=== PATIENT | male | born 1935 ===

== ENCOUNTER 2016-05-10 19:13 | Inpatient (IN) | payer MEDICARE ==
--- NOTE | 2016-05-10 19:15 | ED Physician Chart ---
Chief Complaint/HPI - Patient Information Date Seen:: 05/10/16 Time Seen:: 19:15 Chief Complaint:: agitation History of Present Illness:: 80-year-old male brought in by EMS with acute, worsening, constant, severe, agitation started this morning. Has associated aggressive behavior towards staff and other patients. History limited as patient has underlying dementia and/or psychosis and does not provide any history History provided by EMS and EMS run sheet Historian:: EMS Review:: Nurse's Note Reviewed, EMS run form Reviewed, Transfer documents Reviewed Review of Systems - Review of Systems Other: Complete system review otherwise unremarkable except as noted in HPI. Past Medical History - Past Medical History Past Medical History: HTN, Asthma/COPD, Thyroid disorder, Dementia Family History: None Social History: Non Smoker, No Alcohol, No Drug Use, Care Facility Surgical History: None Psychiatricy History: Schizophrenia Medication: Reviewed Family Medical History - Family Member Mother History Unknown: Yes Physical Exam - Physical Examination Other:: INITIAL VITAL SIGNS: Reviewed by me GENERAL: Patient is lying on gurney, alert but uncooperative and demented. HEAD: Head is normocephalic. No evidence of trauma. No scalp or facial swelling EYES: No scleral icterus bilaterally ENT: Oropharynx is clear of exudate and erythema NECK: Supple. No meningismus. No masses. No evidence of trauma. No cervical spine bony step-offs or crepitus to palpation RESPIRATORY: No tachypnea. Clear to auscultation bilaterally. CV: Regular rate and rhythm. No murmurs, rubs, or gallops ABDOMEN: Soft, non-distended. No masses BACK: No ecchymoses. No evidence of trauma EXTREMITIES: Normal to inspection and palpation. No deformity SKIN: Warm and dry. No obvious rash. No jaundice NEUROLOGIC: Face is symmetric. Withdraws to pain in all extremities Labs/Radiology/EKG Results - Lab Results Results: Lab Results 05/10/16 05/10/16 05/10/16 Range/Units 19:26 19:26 19:26 WBC 13.3 H (4.8-10.8) Th/cmm RBC 5.03 (3.80-5.80) Mil/cmm Hgb 15.3 (12.6-17.4) gm/dL Hct 44.4 (39.0-49.0) % MCV 88.3 (80-99) fl MCH 30.3 (27.0-31.0) pg MCHC Differential 34.4 (28.0-36.0) pg RDW 13.6 (11.5-20.0) % Plt Count 90 L (150-400) Th/cmm MPV 9.6 fl Neutrophils % 88.2 H (40.0-80.0) % Lymphocytes % 7.1 L (20.0-50.0) % Monocytes % 3.8 (2.0-10.0) % Eosinophils % 0.8 (0.0-5.0) % Basophils % 0.1 (0.0-2.0) % Sodium 141 (136-145) mEq/L Potassium 3.8 (3.5-5.1) mEq/L Chloride 113 H (98-107) mEq/L Carbon Dioxide 24.1 (21.0-31.0) mEq/L Anion Gap 7.7 (7.0-16.0) BUN 43 H (7-25) mg/dL Creatinine 1.8 H (0.7-1.3) mg/dL Est GFR ( Amer) TNP Est GFR (Non-Af Amer) TNP BUN/Creatinine Ratio 23.9 Glucose 113 H (70-105) mg/dL Whole Bld Lactic Acid (0.60-2.00) mmol/L Calcium 8.3 L (8.6-10.3) mg/dL Total Bilirubin 1.0 (0.3-1.0) mg/dL AST 23 (13-39) U/L ALT 29 (7-52) U/L Alkaline Phosphatase 178 H (34-104) U/L Total Protein 6.0 (6.0-8.3) gm/dL Albumin 2.9 L (4.2-5.5) gm/dL Globulin 3.1 gm/dL Albumin/Globulin Ratio 0.9 L (1.0-1.8) Triglycerides 120 (<150) mg/dL Cholesterol 140 (<200) mg/dL LDL Cholesterol Direct 99 (75-193) mg/dL HDL Cholesterol 30 (23-92) mg/dL TSH (0.34-5.60) uIU/ml Urine Source Urine Color Urine Clarity (CLEAR) Urine pH Ur Specific Hammond (1.005-1.030) Urine Protein (NEGATIVE) mg/dL Urine Glucose (UA) (NEGATIVE) mg/dL Urine Ketones (NEGATIVE) mg/dL Urine Blood (NEGATIVE) Urine Nitrate (NEGATIVE) Urine Bilirubin (NEGATIVE) Urine Ictotest (NEGATIVE) Urine Urobilinogen (0.2 - 1.0) E.U./dL Ur Leukocyte Esterase (NEGATIVE) Urine RBC (0-5) /hpf Urine WBC (0-5) /hpf Ur Epithelial Cells (FEW) /lpf Urine Bacteria (NONE SEEN) /hpf 05/10/16 05/10/16 05/10/16 Range/Units 19:26 20:56 22:35 WBC (4.8-10.8) Th/cmm RBC (3.80-5.80) Mil/cmm Hgb (12.6-17.4) gm/dL Hct (39.0-49.0) % MCV (80-99) fl MCH (27.0-31.0) pg MCHC Differential (28.0-36.0) pg RDW (11.5-20.0) % Plt Count (150-400) Th/cmm MPV fl Neutrophils % (40.0-80.0) % Lymphocytes % (20.0-50.0) % Monocytes % (2.0-10.0) % Eosinophils % (0.0-5.0) % Basophils % (0.0-2.0) % Sodium (136-145) mEq/L Potassium (3.5-5.1) mEq/L Chloride (98-107) mEq/L Carbon Dioxide (21.0-31.0) mEq/L Anion Gap (7.0-16.0) BUN (7-25) mg/dL Creatinine (0.7-1.3) mg/dL Est GFR ( Amer) Est GFR (Non-Af Amer) BUN/Creatinine Ratio Glucose (70-105) mg/dL Whole Bld Lactic Acid 1.08 (0.60-2.00) mmol/L Calcium (8.6-10.3) mg/dL Total Bilirubin (0.3-1.0) mg/dL AST (13-39) U/L ALT (7-52) U/L Alkaline Phosphatase (34-104) U/L Total Protein (6.0-8.3) gm/dL Albumin (4.2-5.5) gm/dL Globulin gm/dL Albumin/Globulin Ratio (1.0-1.8) Triglycerides (<150) mg/dL Cholesterol (<200) mg/dL LDL Cholesterol Direct (75-193) mg/dL HDL Cholesterol (23-92) mg/dL TSH 5.34 (0.34-5.60) uIU/ml Urine Source CLEAN C Urine Color YELLOW Urine Clarity CLEAR (CLEAR) Urine pH 5.5 Ur Specific Hammond 1.020 (1.005-1.030) Urine Protein 30 H (NEGATIVE) mg/dL Urine Glucose (UA) NEGATIVE (NEGATIVE) mg/dL Urine Ketones NEGATIVE (NEGATIVE) mg/dL Urine Blood NEGATIVE (NEGATIVE) Urine Nitrate NEGATIVE (NEGATIVE) Urine Bilirubin SMALL H (NEGATIVE) Urine Ictotest NEGATIVE (NEGATIVE) Urine Urobilinogen 2.0 (0.2 - 1.0) E.U./dL Ur Leukocyte Esterase NEGATIVE (NEGATIVE) Urine RBC 0-2 H (0-5) /hpf Urine WBC 0-2 (0-5) /hpf Ur Epithelial Cells FEW (FEW) /lpf Urine Bacteria FEW (NONE SEEN) /hpf - EKG Interpretations Comments:: 12-lead EKG Interpretation by Taya Payton MD: Atrial paced with ventricular rate of 80 beats per minute Normal axis Normal intervals No acute ST or T wave changes. No obvious STEMI ED Septic Shock - . Is Septic Shock (SBP<90, OR Lactate>4 mmol\L) present?: No Reassessment (Disposition) - Reassessment Reassessment:: Patient cleared for admission to geropsychiatric unit Reassessment Condition:: Unchanged - Diagnosis Diagnosis:: Acute psychosis, NOS - Patient Disposition Discharge/Transfer:: Acute Care w/in this hosp Admitted to:: [facility] Admitting Medical Physician:: Tony Johnson Admitting Psych Physician:: Cedric Emanuel Condition at Disposition:: Stable ED Discharge Plan - Patient Disposition Admit/Discharge/Transfer: Acute Care w/in this hosp
[2016-05-10 19:58] LABS: ALB/GLOB RATIO 0.9 (1.0-1.8); ALKALINE PHOSPHATASE 178 U/L (34-104); ANION GAP 7.7 (7.0-16.0); BUN - UREA NITROGEN 43 mg/dL (7-25); BUN/CREATININE RATIO 23.9; CALCIUM SERUM 8.3 mg/dL (8.6-10.3); CARBON DIOXIDE 24.1 mEq/L (21.0-31.0); CHLORIDE 113 mEq/L (98-107); CREATININE - SERUM 1.8 mg/dL (0.7-1.3); GLUCOSE 113 mg/dL (70-105); POTASSIUM SERUM 3.8 mEq/L (3.5-5.1); SGOT 23 U/L (13-39); SGPT/ALT 29 U/L (7-52); SODIUM SERUM 141 mEq/L (136-145)
[2016-05-10 19:59] LABS: CHOLESTEROL 140 mg/dL (<200); TRIGLYCERIDES 120 mg/dL (<150)
[2016-05-10 20:08] LABS: % BASOPHILS 0.1 % (0.0-2.0); % EOSINOPHILS 0.8 % (0.0-5.0); % LYMPHOCYTES 7.1 % (20.0-50.0); % MONOCYTES 3.8 % (2.0-10.0); % NEUTROPHILS 88.2 % (40.0-80.0); HEMATOCRIT 44.4 % (39.0-49.0); HEMOGLOBIN 15.3 gm/dL (12.6-17.4); MEAN CELL VOLUME 88.3 fl (80-99); MEAN CORPUSCULAR HEMOGLOBIN 30.3 pg (27.0-31.0); MEAN CORPUSCULAR HGB CONC 34.4 pg (28.0-36.0); MEAN PLATELET VOLUME 9.6 fl; NEUTROPHILE ABSOLUTE 11.8 Th/cmm (1.8-8.0); PLATELET COUNT 90 Th/cmm (150-400); RED BLOOD COUNT 5.03 Mil/cmm (3.80-5.80); RED CELL DISTRIBUTION WIDTH 13.6 % (11.5-20.0); WHITE BLOOD COUNT 13.3 Th/cmm (4.8-10.8)
[2016-05-10 23:05] LABS: URINE BILIRUBIN SMALL (NEGATIVE); URINE BLOOD NEGATIVE (NEGATIVE); URINE COLOR YELLOW; URINE GLUCOSE (UA) NEGATIVE (NEGATIVE); URINE KETONE NEGATIVE (NEGATIVE); URINE PH 5.5; URINE PROTEIN 30 mg/dL (NEGATIVE)
[2016-05-10 23:06] LABS: URINE BACTERIA FEW /hpf (NONE SEEN); URINE EPITHELIAL CELLS FEW /lpf (FEW); URINE RBC 0-2 /hpf (0-5); URINE WBC 0-2 /hpf (0-5)
[2016-05-11] MEDS ORDERED: Maalox 30 mL Cup PO PRN (00:29)
[2016-05-11] MEDS ORDERED: Magnesium Hydroxide (MOM) 30 mL UDC PO PRN (00:29)
[2016-05-11] MEDS ORDERED: Albuterol Sulfate ER 4 mg Tab PO PRN (01:04)
[2016-05-11] MEDS ORDERED: Fleet Enema 135 mL RC PRN (01:21)
[2016-05-11] MEDS: Levothyroxine 0.1 Mg Tab PO SCH (06:37)
[2016-05-11] MEDS: Lactulose 10 Gm/15 mL 30mL UDC PO SCH (10:09)
[2016-05-11] MEDS: Multivitamin Tab PO SCH (10:11)
[2016-05-11 13:27] LABS: HEP B CORE IGM Negative (Negative); HEP C ANTIBODY 0.1 s/co ratio (0.0-0.9)
--- NOTE | 2016-05-11 23:37 | Psychosocial Evaluation ---
JUSTIFICATION FOR HOSPITALIZATION: The patient is brought in for agitation and aggressive behaviors. CHIEF COMPLAINT: Psychotic decompensation and aggression. HISTORY OF PRESENT ILLNESS: A 80-year-old male with history of dementia, living at [facility], brought in due to severe agitation, combative at dinner, restless, unpredictable, trying to get up, not following directions. On [id number] the patient AO to name only, does not know where he is or what is going on, states the year, for example as 1983. PAST PSYCHIATRIC HISTORY: History of dementia per who was at bedside. FAMILY HISTORY: Noncontributory. SOCIAL HISTORY: The patient was born in [place] per the , for about 35 years, 2 sons, heavy smoker. He has quit smoking over 10 years ago. MEDICAL HISTORY: Please see full H and P. MENTAL STATUS EXAMINATION: Appearance stated age. Fair eye contact. Speech rambling. Mood: "Okay." Affect flat. Thought processes were confused. Disoriented, thought content, no overt SI or HI. Unclear evidence of psychosis. Poor concentration, poor. Insight, poor judgment, poor impulse control. PROVISIONAL DIAGNOSES: Dementia with behavioral disturbances; anxiety, unspecified; psychosis, unspecified; mood, unspecified. ESTIMATED LENGTH OF STAY: 5-10 days. ASSESSMENT: The patient requiring inpatient hospitalization, aggressive, agitated, combative, unpredictable. PLAN: We will continue to monitor. Treatment plan includes group as well as milieu therapy. We will make appropriate medication adjustments. CONDITIONS FOR DISCHARGE: Improved mood, improved affect, cessation of any SI or HI, better control of his psychotic and better control of his agitation and combative symptoms. [facility]# [id number]
--- NOTE | 2016-05-12 05:49 | History & Physical ---
CHIEF COMPLAINT: Agitation. HISTORY OF PRESENT ILLNESS: The patient is a 80-year-old white male brought in by EMS from his skilled facility. The patient had acute worsening of constant severe agitation that started on the morning of admission. The patient has history of aggressive behavior towards staff and other patients. REVIEW OF SYSTEMS: See history of present illness. PAST MEDICAL HISTORY: Hypertension, asthma, COPD, hypothyroidism, dementia and schizophrenia. FAMILY HISTORY: Noncontributory. SOCIAL HISTORY: No reports of smoking, drinking or IV drug abuse. ALLERGIES: PENICILLIN. PHYSICAL EXAMINATION: VITAL SIGNS: On admission, temperature of 97.8, pulse of 80, blood pressure 150/77, respiratory rate 18, O2 saturation 95% on room air. GENERAL: Awake, alert, nontoxic in appearance. HEENT: Normocephalic and atraumatic. Extraocular movements are intact. Pupils are reactive to light. Oropharynx is clear. NECK: Supple. No thyromegaly. No lymphadenopathy. RESPIRATORY: Clear. No wheezes or rhonchi. CARDIOVASCULAR: S1, S2. No rubs, murmurs or gallops. GASTROINTESTINAL: Soft, nontender, nondistended. Positive bowel sounds. GENITOURINARY: No CVA tenderness, no suprapubic tenderness. BACK: No midline tenderness. EXTREMITIES: Equal pulses bilaterally. No cyanosis, clubbing or edema. SKIN: Negative. NEUROLOGIC: Cranial nerves II through XII are intact. Extraocular movements are intact. Sensation is intact. Motor is intact. LABORATORY DATA: Labs on admission are as follows. Hematology: WBC 13.3, hemoglobin is 15.3, hematocrit is 24.4, platelet count is 90, 88% neutrophils, 10% lymphocytes. Chemistry: Sodium 141, chloride 113, bicarbonate 24, anion gap 7.7, BUN 43, creatinine 1.8, glucose is 113, calcium is 8.3, total bilirubin 1.0, AST is 23, ALT is 29, alkaline phosphatase 178. Total protein 6.0, albumin 2.9, globulin 3.1. Lipid panel: Triglyceride 120, cholesterol 140, LDL is 99, HDL is 30, TSH is 5.34. Urinalysis, 30 protein, small bilirubin, 0-2 rbc's. Hepatitis panel is negative. IMPRESSION: 1. Acute psychosis. 2. Hypertension. 3. Asthma. 4. Chronic obstructive pulmonary disease. 4. Hypothyroidism. 5. Dementia. 6. Schizophrenia. 7. Leukocytosis. 8. Thrombocytopenia. 9. Acute kidney injury. 10. Hypercalcemia. 11. Hypoalbuminemia. PLAN: The patient will be admitted to Geropsych Unit at [facility]. Psychiatry consultation with Dr. Emanuel. Obtain alfonso cultures. We will obtain Infectious Disease consultation regarding the patient's leukocytosis. We will obtain Nephrology consultation regarding the patient's elevated BUN and creatinine. We will obtain further labs and consultations as needed. JOB# [id number] MTDD
[2016-05-12] MEDS: Levothyroxine 0.1 Mg Tab PO SCH (06:56)
[2016-05-12 09:17] LABS: ANION GAP 6.7 (7.0-16.0); BUN - UREA NITROGEN 35 mg/dL (7-25); BUN/CREATININE RATIO 23.3; CALCIUM SERUM 8.2 mg/dL (8.6-10.3); CARBON DIOXIDE 29.4 mEq/L (21.0-31.0); CHLORIDE 112 mEq/L (98-107); CREATININE - SERUM 1.5 mg/dL (0.7-1.3); GLUCOSE 110 mg/dL (70-105); POTASSIUM SERUM 4.1 mEq/L (3.5-5.1); SODIUM SERUM 144 mEq/L (136-145)
[2016-05-12 09:27] LABS: % BASOPHILS 0.2 % (0.0-2.0); % EOSINOPHILS 0.9 % (0.0-5.0); % LYMPHOCYTES 10.8 % (20.0-50.0); % MONOCYTES 3.5 % (2.0-10.0); % NEUTROPHILS 84.6 % (40.0-80.0); HEMATOCRIT 41.3 % (39.0-49.0); HEMOGLOBIN 14.3 gm/dL (12.6-17.4); MEAN CELL VOLUME 88.1 fl (80-99); MEAN CORPUSCULAR HEMOGLOBIN 30.6 pg (27.0-31.0); MEAN CORPUSCULAR HGB CONC 34.7 pg (28.0-36.0); MEAN PLATELET VOLUME 9.8 fl; NEUTROPHILE ABSOLUTE 8.6 Th/cmm (1.8-8.0); PLATELET COUNT 92 Th/cmm (150-400); RED BLOOD COUNT 4.69 Mil/cmm (3.80-5.80); RED CELL DISTRIBUTION WIDTH 13.6 % (11.5-20.0)
[2016-05-12 09:29] LABS: WHITE BLOOD COUNT 10.2 Th/cmm (4.8-10.8)
[2016-05-12] MEDS: Lactulose 10 Gm/15 mL 30mL UDC PO SCH (09:39)
[2016-05-12] MEDS: Multivitamin Tab PO SCH (09:45)
[2016-05-13] MEDS: Levothyroxine 0.1 Mg Tab PO SCH (06:34)
[2016-05-13 08:41] LABS: HEMOGLOBIN 14.4 gm/dL (12.6-17.4); MEAN CELL VOLUME 89.3 fl (80-99); MEAN CORPUSCULAR HEMOGLOBIN 30.6 pg (27.0-31.0); MEAN CORPUSCULAR HGB CONC 34.3 pg (28.0-36.0); MEAN PLATELET VOLUME 9.8 fl; PLATELET COUNT 97 Th/cmm (150-400); RED CELL DISTRIBUTION WIDTH 13.9 % (11.5-20.0)
[2016-05-13 08:48] LABS: WHITE BLOOD COUNT 14.2 Th/cmm (4.8-10.8)
[2016-05-13 09:02] LABS: ANION GAP 4.3 (7.0-16.0); BUN - UREA NITROGEN 34 mg/dL (7-25); BUN/CREATININE RATIO 22.7; CALCIUM SERUM 8.2 mg/dL (8.6-10.3); CARBON DIOXIDE 26.9 mEq/L (21.0-31.0); CHLORIDE 113 mEq/L (98-107); CREATININE - SERUM 1.5 mg/dL (0.7-1.3); GLUCOSE 118 mg/dL (70-105); MAGNESIUM 2.2 mg/dL (1.9-2.7); PHOSPHOROUS 3.1 mg/dL (2.5-5.0); POTASSIUM SERUM 4.2 mEq/L (3.5-5.1); SODIUM SERUM 140 mEq/L (136-145)
[2016-05-13] MEDS: Multivitamin Tab PO SCH (09:12)
[2016-05-13] MEDS: Lactulose 10 Gm/15 mL 30mL UDC PO SCH (09:13)
[2016-05-13 09:42] LABS: BAND NEUTROPHILE 8 % (0-10); NEUTROPHILS 80 % (40-80); TOTAL CELLS COUNTED 100
[2016-05-13 09:43] LABS: PLATELET ESTIMATE DECREASED PLATELETS (NORMAL); PLATELET MORPHOLOGY NORMAL (NORMAL)
--- NOTE | 2016-05-13 18:38 | Progress Notes ---
SUBJECTIVE: The patient seen. Chart reviewed. Discussed with staff. The patient is currently in the hospital, history of dementia, psychotic decompensation, aggression, agitation, combative behaviors, poor orientation, states he wants to go home, does not know the year or the month. He remains impulsive, unpredictable recent dose adjust medications. I did speak with yesterday. The patient sleeping fairly well, eating with prompting. ASSESSMENT: The patient remains symptomatic, not safe for discharge, impulsive, unpredictable, history of aggressive behaviors. PLAN: Continue to monitor. Continue Seroquel, adjust dosages. JOB# [id number]
--- NOTE | 2016-05-14 01:31 | Progress Notes ---
SUBJECTIVE: The patient is awake and alert. The patient is stil in the Geropsych Unit. OBJECTIVE: VITAL SIGNS: Temperature 97.5, pulse 52, blood pressure per nursing, respiratory 18, O2 sat 97% on room air. CARDIOVASCULAR: S1, S2. RESPIRATORY: Clear. ABDOMEN: Soft. Positive bowel sounds. LABORATORY DATA: Hematology: WBC 10.2, hemoglobin 14.3, hematocrit 41.3, platelet count of 92, 84% neutrophils, 10% lymphocytes. Chemistry: Sodium 144, potassium 4.1, chloride 112, bicarb 29, anion gap of 6.7, BUN 35, creatinine 1.5, glucose 110, calcium 8.2. Microbiology: MRSA screen 05/10/2016, negative. Blood culture from 05/10/2016 shows no growth. ASSESSMENT: 1. Acute psychosis. 2. Hypertension. 3. Asthma. 4. Chronic obstructive pulmonary disease. 5. Hypothyroidism. 6. Dementia. 7. Schizophrenia. 8. Leukocytosis (resolved). 9. Acute kidney injury (improved). 10. Hyperglycemia. 11. Hypercalcemia. PLAN: Continue current medications and treatment. Obtain labs in a.m. Awaiting culture results. Further recommendations per consults. JOB# [id number] DILCIA
--- NOTE | 2016-05-14 03:10 | Consultation ---
PRIMARY PHYSICIAN: Dr. Johnson. HISTORY OF PRESENT ILLNESS: This is a 80-year-old male who was brought to the Emergency Room with complaint of aggressive behavior and the patient has psychosis, schizophrenia. The patient has been admitted to [facility] and was found to have leukocytosis 13,000. Infectious consultation for further treatment. PAST MEDICAL HISTORY: Coronary artery disease, heart attack in the past, asthma, COPD, hypertension, hypothyroidism, primary biliary cirrhosis, and macular degeneration. SOCIAL HISTORY: Nonsmoker. FAMILY HISTORY: None. ALLERGIES: PENICILLIN. REVIEW OF SYSTEMS: A 14-point review of systems negative. PHYSICAL EXAMINATION: GENERAL: The patient is incontinent of urine, poor hygiene. VITAL SIGNS: Normal. HEENT: Mild pallor, no icterus or plaque. NECK: Supple. LUNGS: Breath sounds bilateral vesicular. CARDIOVASCULAR: S1, S2. ABDOMEN: Soft. Bowel sounds present, multiple area of redness with history of cellulitis. LYMPHATICS: No thyroid and no cervical lymph nodes. No joint swelling. LABORATORY DATA: White count 13,000. DIAGNOSES: Multiple areas of cellulitis, needs local care. In case of fever, we will start him on systemic antibiotics. PLAN: Continue with his psychotic medication. Rest of the care as ordered. We will check his urine, however, this patient is not cooperative for any kind of investigation. Thank you, Dr. Johnson, for this consultation. [facility]# [id number]
--- NOTE | 2016-05-14 04:17 | Progress Notes ---
SUBJECTIVE: The patient seen, chart reviewed, discussed with staff. The patient is currently here for agitation and aggressive behaviors. On [id number], he is confused, still lashing out, combative at times, impulsive, unpredictable, poorly oriented, withdrawn. I did speak with a few days prior. The patient is not safe for a lower level of care, still symptomatic, tolerant of medication adjustments, but still symptomatic and dangerous. ASSESSMENT: The patient remains symptomatic, still can lash out, be dangerous, impulsive, unpredictable. PLAN: Continue to monitor, titrate medications. JOB# [id number]
--- NOTE | 2016-05-14 04:22 | Progress Notes ---
SUBJECTIVE: The patient is still in Geropsych Unit. No reports of acute complaints. OBJECTIVE: VITAL SIGNS: Temperature 97.8, pulse 79, blood pressure 97/66, respiratory rate 18, and O2 saturation 99% on room air. CARDIOVASCULAR: S1 and S2. RESPIRATORY: Clear. GASTROINTESTINAL: Soft. Positive bowel sounds. LABORATORY DATA: Hematology: WBC 10.2, hemoglobin 14.3, hematocrit 41.3, platelet count of 92, 84% neutrophils, 10% lymphocytes. Chemistry: Sodium 144, potassium 4.1, chloride 112, bicarb 29, anion gap 6.7, BUN 35, creatinine 1.5, glucose 110, calcium 8.2. Microbiology: MRSA screen from 05/10/2016 is negative. Blood cultures from 05/10/2016 shows no growth. ASSESSMENT: 1. Acute psychosis. 2. Hypertension. 3. Asthma. 4. Chronic obstructive pulmonary disease. 5. Hypothyroidism. 6. Dementia. 7. Schizophrenia. 8. Leukocytosis (resolved). 9. Acute kidney injury. 10. Hyperglycemia. 11. Hypercalcemia. PLAN: Continue current medications. Obtain labs in a.m. Awaiting nephrology consultation. Further recommendation per consults. JOB# [id number] DILCIA
[2016-05-14] MEDS: Levothyroxine 0.1 Mg Tab PO SCH (07:19)
[2016-05-14] MEDS: Lactulose 10 Gm/15 mL 30mL UDC PO SCH (08:50)
[2016-05-14] MEDS: Multivitamin Tab PO SCH (08:51)
[2016-05-14 08:52] LABS: % BASOPHILS 0.5 % (0.0-2.0); % EOSINOPHILS 1.2 % (0.0-5.0); % LYMPHOCYTES 11.3 % (20.0-50.0); % MONOCYTES 2.2 % (2.0-10.0); % NEUTROPHILS 84.8 % (40.0-80.0); HEMATOCRIT 42.4 % (39.0-49.0); HEMOGLOBIN 14.4 gm/dL (12.6-17.4); MEAN CORPUSCULAR HEMOGLOBIN 30.2 pg (27.0-31.0); MEAN CORPUSCULAR HGB CONC 33.9 pg (28.0-36.0); MEAN PLATELET VOLUME 9.3 fl; NEUTROPHILE ABSOLUTE 10.1 Th/cmm (1.8-8.0); PLATELET COUNT 93 Th/cmm (150-400); RED BLOOD COUNT 4.77 Mil/cmm (3.80-5.80); RED CELL DISTRIBUTION WIDTH 13.8 % (11.5-20.0)
[2016-05-14 09:47] LABS: ANION GAP 5.6 (7.0-16.0); BUN - UREA NITROGEN 29 mg/dL (7-25); BUN/CREATININE RATIO 22.3; CALCIUM SERUM 8.5 mg/dL (8.6-10.3); CARBON DIOXIDE 27.1 mEq/L (21.0-31.0); CHLORIDE 109 mEq/L (98-107); CREATININE - SERUM 1.3 mg/dL (0.7-1.3); GLUCOSE 109 mg/dL (70-105); POTASSIUM SERUM 3.7 mEq/L (3.5-5.1); SODIUM SERUM 138 mEq/L (136-145)
--- NOTE | 2016-05-14 23:55 | Progress Notes ---
SUBJECTIVE: The patient was seen, chart reviewed, and discussed with staff. The patient remains confused, symptomatic, still lashing out, still impulsive, unpredictable, and seems pretty internally preoccupied. The patient was quite agitated at previous nursing facility. Continued concerns for safety do persist. remains supportive. The patient is sleeping well and eating well, requiring prompting for ADLs, requiring prompting to eat, tolerant of medications. No side effects. ASSESSMENT: The patient remains combative, aggressive, agitated, concerns for his safety, impulsive, unpredictable, and very confused. PLAN: We will continue to monitor and titrate medications. Given the severity of the patient's symptoms, he is not safe for discharge. [facility]# [id number]
--- NOTE | 2016-05-15 00:51 | Infectious Disease Prog Note ---
Infectious Disease Subjective - Review of Systems Service Date: 05/15/16 Subjective: cellulitis/cirrhosis hpi- neomycin added ros rae fever o/e vss chest clear abd soft ext pulse dx psychosis. cirrhosis cellulitis plan neomycin Infectious Disease Objective - Results Result Diagrams: 05/14/16 08:10 05/14/16 08:10 Recent Labs: Laboratory Last Values WBC 12.0 Th/cmm (4.8-10.8) H 05/14/16 08:10 RBC 4.77 Mil/cmm (3.80-5.80) 05/14/16 08:10 Hgb 14.4 gm/dL (12.6-17.4) 05/14/16 08:10 Hct 42.4 % (39.0-49.0) 05/14/16 08:10 MCV 89.0 fl (80-99) 05/14/16 08:10 MCH 30.2 pg (27.0-31.0) 05/14/16 08:10 MCHC Differential 33.9 pg (28.0-36.0) 05/14/16 08:10 RDW 13.8 % (11.5-20.0) 05/14/16 08:10 Plt Count 93 Th/cmm (150-400) L 05/14/16 08:10 MPV 9.3 fl 05/14/16 08:10 Neutrophils % 84.8 % (40.0-80.0) H 05/14/16 08:10 Band Neutrophils % 8 % (0-10) 05/13/16 07:30 Lymphocytes % 11.3 % (20.0-50.0) L 05/14/16 08:10 Monocytes % 2.2 % (2.0-10.0) 05/14/16 08:10 Eosinophils % 1.2 % (0.0-5.0) 05/14/16 08:10 Basophils % 0.5 % (0.0-2.0) 05/14/16 08:10 Neutrophils (Manual) 80 % (40-80) 05/13/16 07:30 Lymphocytes 10 % (20-50) L 05/13/16 07:30 Monocytes 2 % (2-10) 05/13/16 07:30 Platelet Estimate DECREASED PLATELETS (NORMAL) 05/13/16 07:30 Platelet Morphology NORMAL (NORMAL) 05/13/16 07:30 RBC Morph Micro Appear NORMAL (NORMAL) 05/13/16 07:30 ESR 10 mm/hr (0-20) 05/12/16 08:22 Sodium 138 mEq/L (136-145) 05/14/16 08:10 Potassium 3.7 mEq/L (3.5-5.1) 05/14/16 08:10 Chloride 109 mEq/L (98-107) H 05/14/16 08:10 Carbon Dioxide 27.1 mEq/L (21.0-31.0) 05/14/16 08:10 Anion Gap 5.6 (7.0-16.0) L 05/14/16 08:10 BUN 29 mg/dL (7-25) H 05/14/16 08:10 Creatinine 1.3 mg/dL (0.7-1.3) 05/14/16 08:10 Est GFR ( Amer) TNP 05/14/16 08:10 Est GFR (Non-Af Amer) TNP 05/14/16 08:10 BUN/Creatinine Ratio 22.3 05/14/16 08:10 Glucose 109 mg/dL (70-105) H 05/14/16 08:10 Whole Bld Lactic Acid 1.08 mmol/L (0.60-2.00) 05/10/16 20:56 Calcium 8.5 mg/dL (8.6-10.3) L 05/14/16 08:10 Phosphorus 3.1 mg/dL (2.5-5.0) 05/13/16 07:30 Magnesium 2.2 mg/dL (1.9-2.7) 05/13/16 07:30 Total Bilirubin 1.0 mg/dL (0.3-1.0) 05/10/16 19:26 AST 23 U/L (13-39) 05/10/16 19:26 ALT 29 U/L (7-52) 05/10/16 19:26 Alkaline Phosphatase 178 U/L (34-104) H 05/10/16 19:26 C-Reactive Protein 8.7 mg/dL (0.0-0.9) H 05/12/16 08:22 Total Protein 6.0 gm/dL (6.0-8.3) 05/10/16 19:26 Albumin 2.9 gm/dL (4.2-5.5) L 05/10/16 19: Globulin 3.1 gm/dL 05/10/16 19: Albumin/Globulin Ratio 0.9 (1.0-1.8) L 05/10/16 19:26 Triglycerides 120 mg/dL (<150) 05/10/16 19:26 Cholesterol 140 mg/dL (<200) 05/10/16 19:26 LDL Cholesterol Direct 99 mg/dL (75-193) 05/10/16 19: HDL Cholesterol 30 mg/dL (23-92) 05/10/16 19: TSH 5.34 uIU/ml (0.34-5.60) 05/10/16 19:26 Urine Source CLEAN C 05/10/16 22:35 Urine Color YELLOW 05/10/16 22:35 Urine Clarity CLEAR (CLEAR) 05/10/16 22:35 Urine pH 5.5 05/10/16 22:35 Ur Specific [place] 1.020 (1.005-1.030) 05/10/16 22:35 Urine Protein 30 mg/dL (NEGATIVE) H 05/10/16 22:35 Urine Glucose (UA) NEGATIVE mg/dL (NEGATIVE) 05/10/16 22:35 Urine Ketones NEGATIVE mg/dL (NEGATIVE) 05/10/16 22:35 Urine Blood NEGATIVE (NEGATIVE) 05/10/16 22:35 Urine Nitrate NEGATIVE (NEGATIVE) 05/10/16 22:35 Urine Bilirubin SMALL (NEGATIVE) H 05/10/16 22:35 Urine Ictotest NEGATIVE (NEGATIVE) 05/10/16 22:35 Urine Urobilinogen 2.0 E.U./dL (0.2 - 1.0) 05/10/16 22:35 Ur Leukocyte Esterase NEGATIVE (NEGATIVE) 05/10/16 22:35 Urine RBC 0-2 /hpf (0-5) H 05/10/16 22:35 Urine WBC 0-2 /hpf (0-5) 05/10/16 22:35 Ur Epithelial Cells FEW /lpf (FEW) 05/10/16 22:35 Urine Bacteria FEW /hpf (NONE SEEN) 05/10/16 22:35 RPR NONREACTIVE (NONREACTIVE) 05/10/16 19:26 Hepatitis A IgM Ab Negative (Negative) 05/10/16 19:26 Hep Bs Antigen Negative (Negative) 05/10/16 19:26 Hep B Core IgM Ab Negative (Negative) 05/10/16 19:26 Hepatitis C Antibody 0.1 s/co ratio (0.0-0.9) 05/10/16 19:26 - Physical Exam Vitals and I&O: Vital Signs Temp 97.8 F 05/14/16 20:22 Pulse 63 05/14/16 20:22 Resp 19 05/14/16 20:22 BP 110/72 05/14/16 20:22 Pulse Ox 98 05/14/16 20:22 Intake & Output 05/14/16 05/14/16 05/15/16 06:59 18:59 06:59 Intake Total 1200 240 Balance 1200 240 Intake: Oral 1200 240 Other: # Voids 2 # Bowel Movements 1 Active Medications: Current Medications Acetaminophen (Tylenol) 650 mg PO Q4HR PRN PRN Reason: PAIN Stop: 07/10/16 00:28 Al Hydrox/Mg Hydrox/Simethicone (Maalox) 30 ml PO Q4HR PRN PRN Reason: GI DISTRESS Stop: 07/10/16 00:28 Albuterol Sulfate (Vospire Er) 4 mg PO BID PRN PRN Reason: Shortness of Breath Stop: 07/10/16 08:59 Ascorbic Acid (Vitamin C) 500 mg PO DAILY DELORES Stop: 07/10/16 08:59 Last Admin: 05/14/16 08:50 Dose: 500 mg Bisacodyl (Dulcolax 10 Mg Supp) 10 mg RC DAILY PRN PRN Reason: Constipation Stop: 07/10/16 01:20 Lactulose (Cephulac) 10 gm PO DAILY DELORES Stop: 07/10/16 08:59 Last Admin: 05/14/16 08:50 Dose: 10 gm Levothyroxine Sodium (Synthroid) 0.2 mg PO QDAC DELORES Stop: 07/10/16 07:29 Last Admin: 05/14/16 07:19 Dose: 0.2 mg Lorazepam (Ativan) 0.5 mg PO Q4HR PRN; Protocol PRN Reason: Anxiety Stop: 06/10/16 00:28 Losartan Potassium (Cozaar) 100 mg PO DAILY DELORES Stop: 07/10/16 08:59 Last Admin: 05/14/16 08:51 Dose: 100 mg Metoprolol Tartrate (Lopressor) 12.5 mg PO DAILY [facility] Stop: 07/10/16 08:59 Last Admin: 05/14/16 08:50 Dose: Not Given Metoprolol Tartrate (Lopressor) 25 mg PO QPM DELORES Stop: 07/10/16 16:59 Last Admin: 05/14/16 16:03 Dose: Not Given Multivitamins/Vitamin C (Theragran) 1 tab PO DAILY [facility]ORES Stop: 07/10/16 08:59 Last Admin: 05/14/16 08:51 Dose: 1 tab Neomycin Sulfate (Neomycin) 500 mg PO Q6HR [facility] Stop: 07/14/16 05:59 Quetiapine Fumarate (Seroquel) 25 mg PO BID DELORES PRN Reason: Protocol Stop: 07/10/16 08:59 Last Admin: 05/14/16 16:12 Dose: 25 mg Sodium Phosphate (Fleet Enema) 135 ml RC Q48HR PRN PRN Reason: Constipation Stop: 07/10/16 01:20 Ursodiol (Actigall) 300 mg PO TID DELORES Stop: 07/10/16 08:59 Last Admin: 05/14/16 21:03 Dose: 300 mg Zinc Sulfate (Zinc Sulfate) 220 mg PO DAILY [facility] Stop: 07/10/16 08:59 Last Admin: 05/14/16 08:52 Dose: 220 mg Zolpidem Tartrate (Ambien) 5 mg PO HS PRN PRN Reason: Insomnia Stop: 07/10/16 00:28 Nutritional Asmnt/Malnutr-PDOC - Dietary Evaluation Malnutrition Findings (Please click <Entered> for more info): Nutritional Asmnt/Malnutrition Start: 05/14/16 15: 19 Text: Status: Active Freq: Document 05/14/16 15:20 CLAUDIO (Rec: 05/14/16 15:38 CLAUDIO SHARMA [email or web address]) Nutritional Asmnt/Malnutrition Patient General Information Nutritional Screening Consult Diagnosis Psychosis Pertinent Medical Hx/Surgical Hx aggressive behavior towards staff and patients, HTN, hypothyrodism, dementia, COPD, schizophrenia Subjective Information Received MD consult on 05/13 for wounds/scabs. Pt is confused and disoriented. Pt is consuming 75-100% of meals, which is adequate to meet pt estimated nutrition needs. Pt BMI is 22kg/m2 (Normal) Current Diet Order/ Nutrition Support Pureed JEANETTE, [place] thick Patient / S.O Not Indicated Pertinent Medications zinc sulfate, seroquel, Theragran, Cozaar, lactulose, Lopressor, Vitamin C, synthroid Pertinent Labs Reviewed. Nutritional Hx/Data Height 1.8 m Height (Calculated Centimeters) 180.3 Current Weight (lbs) 71.668 kg Weight (Calculated Kilograms) 71.7 Weight (Calculated Grams) 30927.6 Weight Status Approriate GI Symptoms GI Symptoms None Food Allergies No Cultural/Ethnic/Jain Belief none noted. Skin Integrity/Comment: Hossein 18. Per wound RN note ( 05/13) chronic wound to Right foot and L foot Estimated Nutritional Goals BEE in Kcals: Using Current wt Calories/Kcals/Kg 25-30kcal/kg Kcals Calculated 1800-2150kcals/day Protein: Using Current wt Protein g/k-1.2gm/kg (skin, COPD) Protein Calculated 72-86gm/day Fluid: ml 1.8-2.15L/day (1ml/kcal) or per MD/DO Nutritional Problem 1. Problem Problem Increased protein needs related to Etiology skin integrity and pulmonary dysfunction as evidenced by Signs/Symptoms: pt found with wounds and has hx of COPD. Intervention/Recommendation Comments Continue current diet as tolerated, adequate to meet pt estimated kcal and protein needs. Expected Outcomes/Goals Expected Outcomes/Goals Goals: Tolerate nutrition regimen to meet >75% estimated kcal and protein needs. Monitor: PO intakes, nutrition -related labs, wt, GI function . F/U as Moderate Risk in 3-5 days (05/17-).
--- NOTE | 2016-05-15 00:54 | Progress Notes ---
SUBJECTIVE: The patient is awake and alert. The patient is still in the Geropsych Unit. OBJECTIVE: VITAL SIGNS: Temperature 97.8, pulse is 70, blood pressure per nursing, respiratory rate 18, and O2 sat is 96% on room air. CARDIOVASCULAR: S1 and S2. RESPIRATORY: Clear. GASTROINTESTINAL: Soft. Positive bowel sounds. LABORATORY DATA: Hematology: WBC is 12.0, hemoglobin 14.4, hematocrit 42.4, platelet count of 93,000, 84% neutrophils, and 11% lymphocytes. Chemistry: Sodium 138, potassium 3.7, chloride 109, bicarb 27, anion gap 5.6, BUN 29, creatinine per labs. Glucose 109, calcium 8.5. Microbiology: MRSA screening from 05/10/2016 is negative. Blood cultures from 05/10/2016 shows no growth. ASSESSMENT: 1. Acute psychosis. 2. Hypertension. 3. Asthma. 4. Chronic obstructive pulmonary disease. 5. Hypothyroidism. 6. Dementia. 7. Schizophrenia. 8. Leukocytosis (improved). 9. Thrombocytosis. 10. Acute kidney injury (resolved). 11. Azotemia. 12. Hyperglycemia. 13. Hypercalcemia. PLAN: Continue current medication and treatment. Awaiting cultures results. Obtain labs in a.m. Further recommendations per consults. JOB# [id number] DILCIA
[2016-05-15] MEDS: Levothyroxine 0.1 Mg Tab PO SCH (06:55)
[2016-05-15 07:15] LABS: % BASOPHILS 0.2 % (0.0-2.0); % MONOCYTES 3.5 % (2.0-10.0); % NEUTROPHILS 82.3 % (40.0-80.0); HEMATOCRIT 39.5 % (39.0-49.0); HEMOGLOBIN 13.5 gm/dL (12.6-17.4); MEAN CELL VOLUME 89.2 fl (80-99); MEAN CORPUSCULAR HEMOGLOBIN 30.5 pg (27.0-31.0); MEAN CORPUSCULAR HGB CONC 34.2 pg (28.0-36.0); MEAN PLATELET VOLUME 8.8 fl; NEUTROPHILE ABSOLUTE 8.1 Th/cmm (1.8-8.0); PLATELET COUNT 96 Th/cmm (150-400); RED BLOOD COUNT 4.43 Mil/cmm (3.80-5.80); RED CELL DISTRIBUTION WIDTH 13.4 % (11.5-20.0); WHITE BLOOD COUNT 9.8 Th/cmm (4.8-10.8)
[2016-05-15 07:37] LABS: ANION GAP 8.1 (7.0-16.0); BUN - UREA NITROGEN 25 mg/dL (7-25); BUN/CREATININE RATIO 19.2; CALCIUM SERUM 8.1 mg/dL (8.6-10.3); CARBON DIOXIDE 26.1 mEq/L (21.0-31.0); CHLORIDE 109 mEq/L (98-107); CREATININE - SERUM 1.3 mg/dL (0.7-1.3); GLUCOSE 86 mg/dL (70-105); POTASSIUM SERUM 4.2 mEq/L (3.5-5.1); SODIUM SERUM 139 mEq/L (136-145)
[2016-05-15] MEDS: Multivitamin Tab PO SCH (08:42)
[2016-05-15] MEDS: Lactulose 10 Gm/15 mL 30mL UDC PO SCH (08:42)
--- NOTE | 2016-05-16 03:10 | Progress Notes ---
SUBJECTIVE: The patient is awake and alert. The patient complains of left knee popping. The patient is on antibiotics. OBJECTIVE: VITAL SIGNS: Temperature 97.8, pulse 65, blood pressure 96/60, respiratory rate 18, and O2 sat is 97% on room air. CARDIOVASCULAR: S1 and S2. RESPIRATORY: Clear. GASTROINTESTINAL: Soft. Positive bowel sounds. EXTREMITIES: Crepitation in left knee. LABORATORY DATA: Hematology: WBC 9.8, hemoglobin 13.5, hematocrit 39.5, platelet count of 96,000, 80% neutrophils, and 13% monocytes. Chemistry: Sodium 139, potassium 4.2, chloride 109, bicarb 26, anion gap 8.1, BUN 25, creatinine per labs. GFR unavailable. Glucose is 86. Calcium is 8.1. Microbiology: MRSA screen from 05/10/2016 is negative. Blood cultures from 05/10/2016 shows some growth. Radiology: No new results. ASSESSMENT: 1. Thrombocytopenia. 2. Hypercalcemia. 3. Left knee osteoarthritis. 4. Cellulitis. 5. Cirrhosis. 6. Acute psychosis. 7. Hypertension. 8. Asthma. 9. Chronic obstructive pulmonary disease. 10. Hypothyroidism. 11. Dementia. 12. Schizophrenia. PLAN: Continue current medication and treatment. Obtain labs in a.m. Further recommendation per consults. JOB# [id number] [facility]ISION[facility]
[2016-05-16] MEDS: Levothyroxine 0.1 Mg Tab PO SCH (06:50)
[2016-05-16 08:17] LABS: % BASOPHILS 0.4 % (0.0-2.0); % LYMPHOCYTES 13.6 % (20.0-50.0); % NEUTROPHILS 81.3 % (40.0-80.0); HEMOGLOBIN 13.3 gm/dL (12.6-17.4); WHITE BLOOD COUNT 9.5 Th/cmm (4.8-10.8)
[2016-05-16 08:31] LABS: ANION GAP 5.6 (7.0-16.0); BUN - UREA NITROGEN 23 mg/dL (7-25); BUN/CREATININE RATIO 17.7; CALCIUM SERUM 8.1 mg/dL (8.6-10.3); CARBON DIOXIDE 26.7 mEq/L (21.0-31.0); CHLORIDE 108 mEq/L (98-107); CREATININE - SERUM 1.3 mg/dL (0.7-1.3); GLUCOSE 98 mg/dL (70-105); POTASSIUM SERUM 4.3 mEq/L (3.5-5.1); SODIUM SERUM 136 mEq/L (136-145)
[2016-05-16 09:01] LABS: % EOSINOPHILS 1.3 % (0.0-5.0); % MONOCYTES 3.4 % (2.0-10.0); HEMATOCRIT 39.5 % (39.0-49.0); MEAN CELL VOLUME 89.5 fl (80-99); MEAN CORPUSCULAR HEMOGLOBIN 30.1 pg (27.0-31.0); MEAN CORPUSCULAR HGB CONC 33.7 pg (28.0-36.0); MEAN PLATELET VOLUME 9.5 fl; NEUTROPHILE ABSOLUTE 7.8 Th/cmm (1.8-8.0); PLATELET COUNT 109 Th/cmm (150-400); RED BLOOD COUNT 4.42 Mil/cmm (3.80-5.80); RED CELL DISTRIBUTION WIDTH 13.7 % (11.5-20.0)
[2016-05-16] MEDS: Multivitamin Tab PO SCH (09:47)
[2016-05-16] MEDS: Lactulose 10 Gm/15 mL 30mL UDC PO SCH (09:47)
--- NOTE | 2016-05-16 18:12 | Progress Notes ---
SUBJECTIVE: The patient seen, chart reviewed, discussed with staff. The patient remains symptomatic, still agitated at times, he is upset, irritable, very confused, disoriented, not quite sure what is going on, where he is or the year or the month, mumbling to himself, rambling nonsensically, poor historian, unable to have a meaningful conversation with him. Good support from , sleeping well, eating with prompting, ADLs with prompting, needs assistance. ASSESSMENT: The patient remains symptomatic, still impulsive, unpredictable safety concerns do persist, very confused. PLAN: We will continue to monitor, continue to titrate medications and his orientation. [facility]# [id number]
--- NOTE | 2016-05-16 22:23 | Progress Notes ---
SUBJECTIVE: The patient seen, chart reviewed, discussed with staff. The patient is very confused, has no idea why he is here. Does not recall events that brought him here, needs a lot of redirection, supervision, needs prompting for ADLs, prompting for p.o. intake, disoriented, still irritable and labile at times. Otherwise, he has been following the rules and redirections and taking his medication, sleeping well, eating with prompting. ASSESSMENT: The patient remains confused, disoriented, still impulsive, unpredictable concerns for safety. PLAN: We will continue to monitor and titrate medications. JOB# [id number]
--- NOTE | 2016-05-17 04:03 | Progress Notes ---
SUBJECTIVE: The patient is awake and alert. The patient is still in the Geropsych Unit. The patient per Psychiatry remains impulsive, confused and unpredictable. The patient is receiving antibiotics therapy. OBJECTIVE: VITAL SIGNS: Temperature 97.6, pulse 75, blood pressure per nursing, respirations 20, O2 sat 100% on room air. CARDIOVASCULAR: S1 and S2. RESPIRATORY: Clear. GASTROINTESTINAL: Soft. +BS. LABORATORY DATA: Hematology: WBC 9.5, hemoglobin 13.3, hematocrit 39.5, platelet count of 109, 81% neutrophils, 13% lymphocytes, ESR is 44. Chemistry: Sodium 136, potassium 4.3, chloride 108, bicarbonate 26, anion gap 5.6, BUN 23, creatinine 0.3, GFR unavailable, glucose 98, calcium 8.1. Microbiology: MRSA screening from 05/10/2016, negative. Blood culture from 05/10/2016, negative. ASSESSMENT: 1. Cellulitis. 2. Liver cirrhosis. 3. Acute psychosis. 4. Hypertension. 5. Asthma. 6. Chronic obstructive pulmonary disease. 7. Hypothyroidism. 8. Dementia. 9. Schizophrenia. 10. Thrombocytopenia. 11. Hypercalcemia. PLAN: Continue current medications and treatment. We will obtain labs on Monday. Further consults. JOB# [id number] [facility]
[2016-05-17] MEDS: Levothyroxine 0.1 Mg Tab PO SCH (06:30)
[2016-05-17] MEDS: Lactulose 10 Gm/15 mL 30mL UDC PO SCH (09:06)
[2016-05-17] MEDS: Multivitamin Tab PO SCH (09:07)
[2016-05-18] MEDS: Levothyroxine 0.1 Mg Tab PO SCH (06:30)
--- NOTE | 2016-05-18 07:30 | Progress Notes ---
SUBJECTIVE: The patient is awake and alert. The patient is in Geropsych Unit. OBJECTIVE: VITAL SIGNS: Temperature 97.6, pulse 84, blood pressure per nursing, respiration 20, and O2 sat 97% on room air. CARDIOVASCULAR: S1 and S2. RESPIRATORY: Clear. GASTROINTESTINAL: Soft. Positive bowel sounds. LABORATORY DATA: none today. ASSESSMENT: 1. Cellulitis. 2. Cirrhosis. 3. Acute psychosis. 4. Hypertension. 5. Asthma. 6. Chronic obstructive pulmonary disease. 7. Hypothyroidism. 8. Dementia. 9. Schizophrenia. PLAN: Continue current medication and treatment. Obtains labs in a.m. Further recommendation per consults. JOB# [id number] MTDD
[2016-05-18 08:17] LABS: % BASOPHILS 0.3 % (0.0-2.0); % EOSINOPHILS 1.1 % (0.0-5.0); % LYMPHOCYTES 16.1 % (20.0-50.0); % MONOCYTES 5.7 % (2.0-10.0); % NEUTROPHILS 76.8 % (40.0-80.0); HEMATOCRIT 40.3 % (39.0-49.0); HEMOGLOBIN 13.6 gm/dL (12.6-17.4); MEAN CELL VOLUME 89.7 fl (80-99); MEAN CORPUSCULAR HEMOGLOBIN 30.2 pg (27.0-31.0); MEAN CORPUSCULAR HGB CONC 33.7 pg (28.0-36.0); MEAN PLATELET VOLUME 8.9 fl; NEUTROPHILE ABSOLUTE 5.7 Th/cmm (1.8-8.0); PLATELET COUNT 110 Th/cmm (150-400); RED CELL DISTRIBUTION WIDTH 13.8 % (11.5-20.0)
[2016-05-18 08:25] LABS: ANION GAP 5.5 (7.0-16.0); BUN - UREA NITROGEN 19 mg/dL (7-25); BUN/CREATININE RATIO 14.6; CALCIUM SERUM 8.6 mg/dL (8.6-10.3); CARBON DIOXIDE 26.7 mEq/L (21.0-31.0); CHLORIDE 108 mEq/L (98-107); CREATININE - SERUM 1.3 mg/dL (0.7-1.3); GLUCOSE 92 mg/dL (70-105); POTASSIUM SERUM 4.2 mEq/L (3.5-5.1); SODIUM SERUM 136 mEq/L (136-145)
[2016-05-18 08:29] LABS: WHITE BLOOD COUNT 7.4 Th/cmm (4.8-10.8)
[2016-05-18] MEDS: Multivitamin Tab PO SCH (08:46)
[2016-05-18] MEDS: Lactulose 10 Gm/15 mL 30mL UDC PO SCH (08:48)
--- NOTE | 2016-05-18 19:07 | Progress Notes ---
SUBJECTIVE: The patient seen, chart reviewed, discussed with staff. The patient remains confused, disoriented, still impulsive, unpredictable, requiring a lot of prompting for ADLs, prompting eating, unable to utilize basic food, clothing and jail due to the severity of his dementia. Sleeping well, taking his medications. ASSESSMENT: The patient remains symptomatic, confused, demented, still impulsive and unpredictable. PLAN: Continue to monitor. The patient will need help with placement, currently gravely disabled. [facility]# [id number]
--- NOTE | 2016-05-18 22:11 | Progress Notes ---
SUBJECTIVE: The patient seen, chart reviewed, discussed with staff. The patient remains confused, disoriented, needing a lot of supervision, prompting by staff for ADLs and for eating, wandering, pacing. Does not really know where he is and what is going on. Unable to utilize basic food, clothing and residential. We are currently attempting to find placement for the patient. He is taking his medications, sleeping well, eating well, no agitation. ASSESSMENT: The patient remains confused, disoriented, disorganized. PLAN: Continue to monitor, titrate medications, confirm placement, continue to redirect. JOB# [id number]
--- NOTE | 2016-05-19 00:04 | Progress Notes ---
SUBJECTIVE: The patient is awake and alert. The patient is still in the Geropsych Unit. OBJECTIVE: VITAL SIGNS: Temperature 97.8, pulse 82, blood pressure per nursing, respirations 20, O2 sat 97% on room air. CARDIOVASCULAR: S1 and S2. RESPIRATORY: Clear. ABDOMEN: Soft. Positive bowel sounds. LABORATORY DATA: Hematology: WBC 7.4, hemoglobin 13.6, hematocrit 40.3, platelet count of 110, 16% lymphocytes. Chemistry: Sodium 136, potassium 4.2, chloride per labs, bicarb 26, anion gap 5.5, BUN 19, creatinine 0.3. GFR unavailable. Glucose is 92, calcium is 8.6. Microbiology: MRSA screening from 05/10/2016 negative. Blood culture from 05/10/2016 showed no growth. ASSESSMENT: 1. Cellulitis. 2. Cirrhosis. 3. Acute psychosis. 4. Hypertension. 5. Asthma. 6. Chronic obstructive pulmonary disease. 7. Hypothyroidism. 8. Dementia. 9. Schizophrenia. PLAN: Continue current medications. Obtain labs in a.m. Further consults. The patient would need clearance by Psychiatry for discharge. JOB# [id number] MTDKoffi
[2016-05-19] MEDS: Levothyroxine 0.1 Mg Tab PO SCH (06:34)
[2016-05-19] MEDS: Multivitamin Tab PO SCH (08:36)
[2016-05-19] MEDS: Lactulose 10 Gm/15 mL 30mL UDC PO SCH (08:38)
[2016-05-20] MEDS: Levothyroxine 0.1 Mg Tab PO SCH (06:38)
--- NOTE | 2016-05-20 07:20 | Progress Notes ---
SUBJECTIVE: The patient is awake and alert. The patient was in Geropsych unit. Per Psychiatry, the patient remains confused. OBJECTIVE: VITAL SIGNS: Temperature 98.4, pulse 80, blood pressure 110/60, respiratory rate 20, O2 on room air. CARDIOVASCULAR: S1 and S2. RESPIRATORY: Clear. GASTROINTESTINAL: Soft. Positive bowel sounds. LABORATORY DATA: Hematology 7.4, hemoglobin is 13.6, hematocrit 40.3, platelet count 110 and 16% lymphocytes. Chemistry: Sodium 136, potassium 4.2, bicarbonate 26, anion gap 5.5, BUN 19 and creatinine is 1.3. GFR unavailable. Glucose 92, calcium 8.6. ASSESSMENT: 1. Thrombocytopenia. 2. Psychosis. 3. Hypertension. 4. Asthma. 5. Chronic obstructive pulmonary disease. 6. Hypothyroidism. 7. Dementia. 8. Schizophrenia. PLAN: Continue current medication and treatment. We will obtain labs on Monday. Further recommendations per consults. JOB# [id number] MTDD
[2016-05-20 08:29] LABS: HEMOGLOBIN 13.3 gm/dL (12.6-17.4)
[2016-05-20 08:35] LABS: % BASOPHILS 0.3 % (0.0-2.0); % EOSINOPHILS 1.5 % (0.0-5.0); % LYMPHOCYTES 16.5 % (20.0-50.0); % MONOCYTES 7.2 % (2.0-10.0); % NEUTROPHILS 74.5 % (40.0-80.0); MEAN CORPUSCULAR HEMOGLOBIN 30.4 pg (27.0-31.0); MEAN CORPUSCULAR HGB CONC 34.1 pg (28.0-36.0); MEAN PLATELET VOLUME 9.2 fl; NEUTROPHILE ABSOLUTE 5.3 Th/cmm (1.8-8.0); PLATELET COUNT 129 Th/cmm (150-400); RED BLOOD COUNT 4.39 Mil/cmm (3.80-5.80); RED CELL DISTRIBUTION WIDTH 13.8 % (11.5-20.0); WHITE BLOOD COUNT 7.1 Th/cmm (4.8-10.8)
[2016-05-20] MEDS: Multivitamin Tab PO SCH (08:49)
[2016-05-20] MEDS: Lactulose 10 Gm/15 mL 30mL UDC PO SCH (08:51)
[2016-05-20 09:07] LABS: ANION GAP 8.2 (7.0-16.0); BUN - UREA NITROGEN 27 mg/dL (7-25); BUN/CREATININE RATIO 16.9; CALCIUM SERUM 8.6 mg/dL (8.6-10.3); CARBON DIOXIDE 25.9 mEq/L (21.0-31.0); CHLORIDE 107 mEq/L (98-107); CREATININE - SERUM 1.6 mg/dL (0.7-1.3); GLUCOSE 89 mg/dL (70-105); POTASSIUM SERUM 4.1 mEq/L (3.5-5.1); SODIUM SERUM 137 mEq/L (136-145)
--- NOTE | 2016-05-21 01:41 | Progress Notes ---
SUBJECTIVE: The patient is still in Psych Unit. The patient remains confused and disorganized. OBJECTIVE: VITAL SIGNS: Temperature 98.6, pulse 96, blood pressure 112/63, respiratory rate 20, O2 saturation 97% on room air. CARDIOVASCULAR: S1 and S2. RESPIRATORY: Clear. GASTROINTESTINAL: Soft. Positive bowel sounds. LABORATORY DATA: Hematology: WBC 7.4, hemoglobin 13.6, hematocrit 40.3, platelet count of 110 with 16% lymphocytes, 12% monocytes, 1% eosinophils. Chemistry: Sodium 136, potassium 4.2, chloride 108, bicarbonate 26, anion gap 5.5, BUN 19, creatinine 1.3. GFR unavailable. Glucose is 92, calcium 8.6. MICROBIOLOGY: MRSA screening from 05/10/2016 is negative. Blood culture from 05/10/2016 is negative. RADIOLOGY: No new radiology results. ASSESSMENT: 1. Psychosis. 2. Hypertension. 3. Asthma. 4. Chronic obstructive pulmonary disease. 5. Hypothyroidism. 6. Dementia. 7. Schizophrenia. 8. Thrombocytopenia. PLAN: Continue current medications and treatment. Obtain labs on Monday. Further consults. JOB# [id number] DILCIA
--- NOTE | 2016-05-21 01:59 | Progress Notes ---
SUBJECTIVE: The patient seen, chart reviewed, discussed with staff. The patient remains confused, symptomatic, gravely disabled, cannot utilize basic food, clothing and assisted, also ___[facility]_ asking us to sign alternative placement because of his behaviors and agitation. The patient remains at behavioral problems, still trying to get up at times, confused, disoriented, requiring a lot of prompting for ADLs. He is taking his medications. ASSESSMENT: The patient is disoriented, disorganized, gravely disabled. PLAN: Continue to monitor. The patient will need help with placement as he cannot take care of his basic needs. JOB# [id number] DILCIA
--- NOTE | 2016-05-21 02:16 | Progress Notes ---
SUBJECTIVE: The patient seen, chart reviewed, discussed with staff. The patient remains symptomatic, confused, disoriented, gravely disabled, unable to utilize basic food, clothing and senior living. We are trying to help him with placement , [facility] was concerned about having him back, so we are searching for another place. Until we find and confirm placement, he remains gravely disabled, too confused, needing a lot of prompting, at bedside __, I answered questions and updated her__. ASSESSMENT: The patient is irritable, responding to redirection, but needing a lot of prompting, cannot care for his basic needs. PLAN: We will continue to monitor. We will continue to adjust his medications and we are working hard with social work. JOB# [id number] MTDKoffi
[2016-05-21] MEDS: Levothyroxine 0.1 Mg Tab PO SCH (06:48)
[2016-05-21] MEDS: Lactulose 10 Gm/15 mL 30mL UDC PO SCH (09:32)
[2016-05-21] MEDS: Multivitamin Tab PO SCH (09:33)
--- NOTE | 2016-05-21 21:26 | Progress Notes ---
SUBJECTIVE: The patient seen, chart reviewed, discussed with staff. The patient remains symptomatic, wandering, pacing very confused, impulsive, unpredictable, unable to utilize basic food, clothing and retirement. He is gravely disabled and we have not been able to confirm placement as of yet. He does have behavioral disturbances, still needing a lot of redirections, supervision, getting up at times, resistive to ADLs. On a positive note, he is taking his medications, no side effects. ASSESSMENT: The patient remains symptomatic, still with grave disability, irritable, impulsive, difficulty with following in rules and resistant to care. PLAN: We will continue to monitor, continue to titrate medications. Due to the severity of the patient's symptoms, he is not safe for a lower level of care. JOB# [id number]
[2016-05-22] MEDS: Levothyroxine 0.1 Mg Tab PO SCH (06:42)
[2016-05-22] MEDS: Lactulose 10 Gm/15 mL 30mL UDC PO SCH (09:04)
[2016-05-22] MEDS: Multivitamin Tab PO SCH (09:08)
--- NOTE | 2016-05-22 20:31 | Progress Notes ---
GENERAL PROGRESS IN THE UNIT: The patient is still confused and forgetful. The patient also is still wandering around. The patient also still wants to be left alone. He has been compliant with taking his medications. No major behavioral problems. No side effects of medications. ASSESSMENT: The patient is still confused and psychotic. TREATMENT PLAN: Continue monitoring his behavior and his medications closely. Also, continue to work on his adjusting psychotropic medications and continue to follow up. JOB# [id number]
[2016-05-23] MEDS: Lactulose 10 Gm/15 mL 30mL UDC PO SCH (09:18)
[2016-05-23] MEDS: Multivitamin Tab PO SCH (09:19)
--- NOTE | 2016-05-23 23:56 | Progress Notes ---
SUBJECTIVE: The patient was seen, chart reviewed, and discussed with staff. The patient with continued wandering episode, escalated this morning, became very upset, demanding that a car take him somewhere else, demanding to leave the hospital, but he is too confused, disoriented, unable to utilize basic food, clothing, and residential due to the severity of his symptoms, quite demented, getting up at times, needing redirection, difficulty following any rules and directions. ASSESSMENT: The patient remains symptomatic, demented, still agitated at times, escalates. PLAN: We will continue to monitor. We will titrate medications. The patient remains symptomatic, not safe for discharge. We are also currently pending placement because is not willing to have him back due to his behaviors. [facility]# [id number]
--- NOTE | 2016-05-24 05:53 | Progress Notes ---
SUBJECTIVE: The patient is still in Geropsych Unit. Per Psychiatry, the patient is still confused and psychotic. OBJECTIVE: VITAL SIGNS: Temperature 98.3, pulse 88, blood pressure 129/84, respiratory rate 20, and O2 sat is 98% on room air. CARDIOVASCULAR: S1 and S2. RESPIRATORY: Clear. GASTROINTESTINAL: Soft. Positive bowel sounds. LABORATORY DATA: No labs for today. ASSESSMENT: 1. Psychosis. 2. Hypertension. 3. Asthma. 4. Chronic obstructive pulmonary disease. 5. Hypothyroidism. 6. Dementia. 7. Schizophrenia. PLAN: Continue current medications and treatment. Obtain labs in a.m. Further recommendations per consults. JOB# [id number]
[2016-05-24] MEDS: Levothyroxine 0.1 Mg Tab PO SCH (06:45)
[2016-05-24 08:11] LABS: % BASOPHILS 0.4 % (0.0-2.0); % EOSINOPHILS 2.1 % (0.0-5.0); % LYMPHOCYTES 23.4 % (20.0-50.0); % MONOCYTES 8.9 % (2.0-10.0); % NEUTROPHILS 65.2 % (40.0-80.0); HEMATOCRIT 37.8 % (39.0-49.0); HEMOGLOBIN 12.9 gm/dL (12.6-17.4); MEAN CELL VOLUME 89.6 fl (80-99); MEAN CORPUSCULAR HEMOGLOBIN 30.6 pg (27.0-31.0); MEAN CORPUSCULAR HGB CONC 34.2 pg (28.0-36.0); MEAN PLATELET VOLUME 8.1 fl; NEUTROPHILE ABSOLUTE 3.2 Th/cmm (1.8-8.0); PLATELET COUNT 139 Th/cmm (150-400); RED BLOOD COUNT 4.22 Mil/cmm (3.80-5.80); RED CELL DISTRIBUTION WIDTH 14.5 % (11.5-20.0)
[2016-05-24 08:13] LABS: WHITE BLOOD COUNT 4.8 Th/cmm (4.8-10.8)
[2016-05-24 08:27] LABS: ANION GAP 9.5 (7.0-16.0); BUN - UREA NITROGEN 24 mg/dL (7-25); BUN/CREATININE RATIO 17.1; CALCIUM SERUM 8.8 mg/dL (8.6-10.3); CARBON DIOXIDE 26.8 mEq/L (21.0-31.0); CHLORIDE 105 mEq/L (98-107); CREATININE - SERUM 1.4 mg/dL (0.7-1.3); GLUCOSE 92 mg/dL (70-105); POTASSIUM SERUM 4.3 mEq/L (3.5-5.1); SODIUM SERUM 137 mEq/L (136-145)
[2016-05-24] MEDS: Lactulose 10 Gm/15 mL 30mL UDC PO SCH (08:48)
[2016-05-24] MEDS: Multivitamin Tab PO SCH (08:49)
--- NOTE | 2016-05-25 09:50 | Progress Notes ---
SUBJECTIVE: The patient seen, chart reviewed, and discussed with staff. The patient seems to be calmer, redirectable, still with some wandering episodes, but seems to be following in rules and directions. No SI, no HI. No overt evidence of psychosis, but he remains disoriented and confused. Sleeping well and taking his medications. ASSESSMENT AND PLAN: Placement has been confirmed. The patient is not agitated or aggressive, and we will discharge him today. JOB# [id number]
--- NOTE | 2016-05-25 10:33 | Progress Notes ---
SUBJECTIVE: The patient is awake and alert. The patient is still in Geropsych Unit. Per Psychiatry, the patient has remained symptomatic, demented and agitated at times. OBJECTIVE: VITAL SIGNS: Temperature 98.3, pulse 70, blood pressure 124/78, respiratory rate 19, O2 saturation 98% on room air. CARDIOVASCULAR: S1 and S2. RESPIRATORY: Clear. GASTROINTESTINAL: Soft. Positive bowel sounds. LABORATORY DATA: Hematology: WBC per labs, hemoglobin 12.9, hematocrit 37.8, platelet count 139, no left shift noted. Chemistry: Sodium 137, potassium 4.3, chloride 105, bicarbonate 26, anion gap 9.5, BUN 24, creatinine 1.4, glucose 92, calcium 8.8. ASSESSMENT: 1. Thrombocytopenia. 2. Acute kidney injury. 3. Chronic kidney disease. 4. Psychosis. 5. Hypertension. 6. Asthma. 7. Chronic obstructive pulmonary disease. 8. Hypothyroidism. 9. Dementia. 10. Schizophrenia. PLAN: Continue current medications and treatment. Obtain labs on . Further recommendations per consults. JOB# [id number] MTDD
--- NOTE | 2016-07-11 21:01 | Discharge Summary ---
DATE OF DISCHARGE: 05/24/2016 JUSTIFICATION FOR HOSPITALIZATION: The patient was brought in for agitation and aggressive behaviors. CHIEF COMPLAINT: Psychotic decompensation and aggression. HISTORY OF PRESENT ILLNESS: This is a 81-year-old male with history of dementia, living at [facility], severe agitation, combative, restless, unpredictable, poorly oriented and confused. PAST PSYCHIATRIC HISTORY: History of dementia. SOCIAL HISTORY: Born in [place], . History of smoking. MENTAL STATUS EXAMINATION: Please see full psych eval for details. PROVISIONAL DIAGNOSES: Dementia with behavioral disturbances, anxiety unspecified, psychosis unspecified and mood unspecified. PAST MEDICAL HISTORY: Please see full H and P. HOSPITAL COURSE: After initial assessment, the patient was initiated on medications to target his confusion as well as his agitation. Over the course of the hospitalization, the patient did improve, mood improved, affect improved, calmer and more cooperative, no longer aggressive or violent. Towards the latter end of his hospitalization, he was calmer, more cooperative, more engaged and disposition planning was initiated. CONDITION UPON DISCHARGE: Improved, better attention ADLs, good eye contact. Speech less rambling. Mood "okay." Affect constricted. Thought process confused. No SI and no HI. No evidence of psychosis. Better concentration, better focus and better impulse control, sleeping well, eating well. Good support from family as well. The patient was discharged to [facility]. No side effects were noted on exam of medications. DISCHARGE DIAGNOSES: Dementia with behaviors, also anxiety unspecified, psychosis unspecified, mood unspecified and on medical nothing acute. Please see full H and P. PROGNOSES: The patient follows up with Psychiatry at [facility] in the next 7-10 days. Takes medications as directed and remains treatment compliant. Prognosis will improve, otherwise guarded. [facility]# [id number]
== END 2016-05-24 19:55 | DRG 884 ==
LOC: ER 19:13 → GERO 23:19
PROVIDERS: ADMIT Psychiatry & Neurology Psychiatry; ATTEND Psychiatry & Neurology Psychiatry
DX: F03.91 Unspecified dementia, unspecified severity, with behavioral disturbance (principal); N17.9 Acute kidney failure, unspecified; D69.6 Thrombocytopenia, unspecified; J44.9 Chronic obstructive pulmonary disease, unspecified; E83.52 Hypercalcemia; E88.09 Other disorders of plasma-protein metabolism, not elsewhere classified; K74.60 Unspecified cirrhosis of liver; L03.818 Cellulitis of other sites; J45.909 Unspecified asthma, uncomplicated; F20.9 Schizophrenia, unspecified; F29 Unspecified psychosis not due to a substance or known physiological condition; F41.9 Anxiety disorder, unspecified; F39 Unspecified mood [affective] disorder; E03.9 Hypothyroidism, unspecified; D72.829 Elevated white blood cell count, unspecified; R73.9 Hyperglycemia, unspecified; I25.10 Atherosclerotic heart disease of native coronary artery without angina pectoris; I25.2 Old myocardial infarction; K74.5 Biliary cirrhosis, unspecified; H35.30 Unspecified macular degeneration; M17.12 Unilateral primary osteoarthritis, left knee; I12.9 Hypertensive chronic kidney disease with stage 1 through stage 4 chronic kidney disease, or unspecified chronic kidney disease; N18.9 Chronic kidney disease, unspecified; Z88.0 Allergy status to penicillin; Z87.891 Personal history of nicotine dependence
CPT/HCPCS: 36415-UA; 80048-TC; 80053-TC; 80061-TC; 80074-90; 81001-TC; 83605; 83735-TC; 84100-TC; 84443-TC; 85007-TC; 85025-TC; 85027-TC; 85652-TC; 86141-TC; 86592-TC; 90899; 93005; 94760; Z7610